=== PATIENT | male | born 1955 | race Caucasian/White ===

== ENCOUNTER 2019-01-31 17:57 | Emergency (ER) | payer OTHER ==
[~2019-01-31] VITALS: Ht 182.9 cm; Wt 93.9 kg
[2019-01-31 18:37] VITALS: Ht 182.9 cm; Wt 93.9 kg
[2019-01-31 20:14] LABS: PLATELET COUNT 255 x10^3mcL (130-400); RED CELL DISTRIBUTION WIDTH 12.3 % (11.5-14.5)
[2019-01-31 20:15] LABS: BASOPHIL % 0 % (0-2)
[2019-01-31 20:17] LABS: CALCIUM 9.3 mg/dL (8.5-10.1); CARBON DIOXIDE 31.7 mmol/L (21-32); CHLORIDE SERUM 100 mmol/L (98-107); CREATININE SERUM 0.9 mg/dL (0.7-1.3); GFR1 > 60 mL/min; GLUCOSE SERUM 292 mg/dL (74-106); POTASSIUM SERUM 3.6 mmol/L (3.5-5.1); SODIUM SERUM 138 mmol/L (136-145)
[2019-01-31 20:22] LABS: ALBUMIN 3.5 g/dL (3.4-5.0); ALKALINE PHOSPHATASE 90 U/L (46-116); ALT/SGPT 20 U/L (16-63); AST/SGOT 12 U/L (15-37); BILIRUBIN TOTAL 0.7 mg/dL (0.20-1.00); TOTAL PROTEIN, SERUM 7.5 g/dL (6.4-8.2)
[2019-01-31 21:40] LABS: microscopic required? NO
[2019-01-31 21:46] LABS: urine erythrocyte NEGATIVE (NEGATIVE)
[2019-02-01 00:11] VITALS: BP 147/88
== END 2019-02-01 00:10 | disposition home or self-care (01) ==
LOC: ED 17:57
PROVIDERS: Specialist
DX: E11.9 Type 2 diabetes mellitus without complications (principal)
CPT/HCPCS: 36415

== ENCOUNTER 2019-03-04 10:50 | Inpatient (IN) | payer OTHER ==
[~2019-03-04] VITALS: Ht 182.9 cm; Wt 81.6 kg
[2019-03-04 11:26] VITALS: Ht 182.9 cm; Wt 81.6 kg
[2019-03-04 12:29] LABS: BASOPHIL % 0.3 % (0-2); PLATELET COUNT 257 x10^3mcL (130-400); RED CELL DISTRIBUTION WIDTH 12.5 % (11.5-14.5)
[2019-03-04 12:44] LABS: ALKALINE PHOSPHATASE 84 U/L (46-116); ALT/SGPT 22 U/L (16-63); AMYLASE 81 U/L (25-115); AST/SGOT 20 U/L (15-37); BILIRUBIN TOTAL 0.55 mg/dL (0.20-1.00); CARBON DIOXIDE 31.7 mmol/L (21-32); CHLORIDE SERUM 102 mmol/L (98-107); CHOLESTEROL 147 mg/dL (<200); CREATININE SERUM 0.9 mg/dL (0.7-1.3); GFR1 > 60 mL/min; GLUCOSE SERUM 171 mg/dL (74-106); HDL CHOLESTEROL 40 mg/dL (40-60); LIPASE 632 IU/L (73-393); MAGNESIUM 1.7 mg/dL (1.8-2.4); POTASSIUM SERUM 3.3 mmol/L (3.5-5.1); SODIUM SERUM 141 mmol/L (136-145); T4(THYROXINE) 8.7 ug/dL (4.7-13.3); TOTAL PROTEIN, SERUM 7.3 g/dL (6.4-8.2)
[2019-03-04 12:51] LABS: CALCIUM 10.1 mg/dL (8.5-10.1)
[2019-03-04 12:52] LABS: ALBUMIN 3.3 g/dL (3.4-5.0)
[2019-03-04] MEDS ORDERED: ZESTRIL20 MG PO (13:54)
[2019-03-04] MEDS ORDERED: NOR5 PO (13:54)
[2019-03-04] MEDS ORDERED: METFORMIN500 M1 PO (13:54)
[2019-03-04] MEDS ORDERED: GLIPIZIDE5 M3 PO (13:54)
[2019-03-04 15:00] VITALS: BP 138/83
[2019-03-04 15:51] LABS: CHOLESTEROL/HDL RATIO 3.5
[2019-03-04 16:06] VITALS: BP 128/85
[2019-03-04 20:23] VITALS: BP 120/65
[2019-03-05 05:51] VITALS: BP 108/62
[2019-03-05 07:28] VITALS: BP 108/64
[2019-03-05 11:46] VITALS: BP 110/57
[2019-03-05] MEDS ORDERED: ARICEPT10 MG PO (12:25)
[2019-03-05 12:26] VITALS: BP 110/57
[2019-03-05 15:17] VITALS: BP 100/53
== END 2019-03-05 21:03 | disposition home or self-care (01) | DRG 563 ==
LOC: ED 10:50 → IC 13:40 → DU 13:40 → IC 14:20 → DU 18:32
PROVIDERS: Emergency Medicine; ADMIT Internal Medicine Pulmonary Disease
DX: S46.912A Strain of unspecified muscle, fascia and tendon at shoulder and upper arm level, left arm, initial encounter (principal); E46 Unspecified protein-calorie malnutrition; E87.6 Hypokalemia; E83.42 Hypomagnesemia; I10 Essential (primary) hypertension; E11.9 Type 2 diabetes mellitus without complications; G30.0 Alzheimer's disease with early onset; F02.80 Dementia in other diseases classified elsewhere, unspecified severity, without behavioral disturbance, psychotic disturbance, mood disturbance, and anxiety; Z79.84 Long term (current) use of oral hypoglycemic drugs; Z68.27 Body mass index [BMI] 27.0-27.9, adult; Z91.81 History of falling; W07.XXXA Fall from chair, initial encounter; Y93.89 Activity, other specified; Y92.038 Other place in apartment as the place of occurrence of the external cause; Y99.8 Other external cause status
CPT/HCPCS: 82962; 83880; 90658; J0282; J3475; J3480; J7030; J7040; Q0092

== ENCOUNTER 2019-10-10 11:44 | Emergency (ER) | payer OTHER ==
[~2019-10-10] VITALS: Ht 185.4 cm; Wt 82.6 kg
[~2019-10-10 11:44] MED LIST: ARICEPT10 MG PO; GLIPIZIDE5 M3 PO; METFORMIN500 M1 PO; NOR5 PO; ZESTRIL20 MG PO
[2019-10-10 11:52] VITALS: Ht 185.4 cm; Wt 82.6 kg
[2019-10-10 12:25] LABS: microscopic required? YES; urine erythrocyte 2+ (NEGATIVE)
[2019-10-10 12:53] LABS: BASOPHIL % 0.1 % (0-2); PLATELET COUNT 256 x10^3mcL (130-400); RED CELL DISTRIBUTION WIDTH 12.2 % (11.5-14.5)
[2019-10-10 13:02] LABS: CALCIUM 8.5 mg/dL (8.5-10.1); CARBON DIOXIDE 30.2 mmol/L (21-32); CHLORIDE SERUM 91 mmol/L (98-107); CREATININE SERUM 1.1 mg/dL (0.7-1.3); GFR1 > 60 mL/min; GLUCOSE SERUM 350 mg/dL (74-106); POTASSIUM SERUM 4.3 mmol/L (3.5-5.1); SODIUM SERUM 128 mmol/L (136-145)
[2019-10-10 13:08] LABS: ALKALINE PHOSPHATASE 82 U/L (46-116); ALT/SGPT 49 U/L (16-63); AST/SGOT 26 U/L (15-37); BILIRUBIN TOTAL 0.43 mg/dL (0.20-1.00); CHOLESTEROL 139 mg/dL (<200); LIPASE 260 IU/L (73-393); TOTAL PROTEIN, SERUM 6.7 g/dL (6.4-8.2)
[2019-10-10 13:17] LABS: ALBUMIN 2.1 g/dL (3.4-5.0); HDL CHOLESTEROL 14 mg/dL (40-60)
[2019-10-10 15:59] VITALS: BP 108/65
== END 2019-10-10 15:59 | disposition short-term general hospital (02) ==
LOC: ED 11:44
PROVIDERS: Emergency Medicine
DX: I21.4 Non-ST elevation (NSTEMI) myocardial infarction (principal); G93.89 Other specified disorders of brain; N39.0 Urinary tract infection, site not specified; E11.65 Type 2 diabetes mellitus with hyperglycemia; K62.89 Other specified diseases of anus and rectum
CPT/HCPCS: 82962; J0696; J1100; J1644; J1815; J7030; J7060

== ENCOUNTER 2020-01-24 19:19 | Emergency (ER) | payer OTHER ==
[~2020-01-24] VITALS: Ht 185.4 cm; Wt 74.4 kg
[2020-01-24 19:31] VITALS: Ht 185.4 cm; Wt 74.4 kg
[2020-01-24 21:01] LABS: CALCIUM 9.2 mg/dL (8.5-10.1); CARBON DIOXIDE 30.1 mmol/L (21-32); CHLORIDE SERUM 106 mmol/L (98-107); CREATININE SERUM 0.6 mg/dL (0.7-1.3); GFR1 > 60 mL/min; GLUCOSE SERUM 171 mg/dL (74-106); POTASSIUM SERUM 3.8 mmol/L (3.5-5.1); SODIUM SERUM 141 mmol/L (136-145)
[2020-01-24 21:05] LABS: AMPHETAMINE QUAL UR NONE DETECTED (See below)
[2020-01-24 21:06] LABS: BASOPHIL % 0.2 % (0-2); PLATELET COUNT 257 x10^3mcL (130-400); RED CELL DISTRIBUTION WIDTH 13.3 % (11.5-14.5)
[2020-01-24 23:59] VITALS: BP 131/62
== END 2020-01-25 01:18 | disposition home or self-care (01) ==
LOC: ED 19:19
PROVIDERS: Emergency Medicine
DX: R46.89 Other symptoms and signs involving appearance and behavior (principal); R45.1 Restlessness and agitation; E11.9 Type 2 diabetes mellitus without complications
CPT/HCPCS: 36415; G0480